=== PATIENT | female | born 1980 | race Caucasian/White ===

== ENCOUNTER → 2016-07-20 | Outpatient (CLI) | payer BC ==
--- NOTE | 2016-07-20 14:12 | US ---
Study: Thyroid Gland Ultrasound. Indication: NODULE Technique: Multiplanar grayscale sonographic images of the thyroid gland obtained. Comparison: None. Findings: Right lobe measures 5.0 x 1.7 x 1.6 cm. It demonstrates a 1.6 cm hypoechoic solid nodule posterior inferiorly. Left lobe measures 4.7 x 1.9 x 2.0 cm and demonstrates a subtle 2.0 cm solid hypoechoic nodule posterior inferiorly. Isthmus measures 0.5 cm in thickness. Impression: Two subtle solid hypoechoic nodules above which meet criteria for FNA biopsy. Electronically signed by: Johnathan Heredia MD 07/20/2016 2:11 PM [employer]ICAL WAREHOUSEMAN
== END | disposition home or self-care (01) ==
LOC: US 13:02
PROVIDERS: ATTEND Emergency Medicine
DX: E04.1 Nontoxic single thyroid nodule (principal)

== ENCOUNTER → 2016-08-24 | Outpatient (CLI) | payer BC ==
--- NOTE | 2016-08-24 15:00 | MAM ---
History: Well woman exam. Date of exam: 08/24/2016 Services provided: Bilateral full field digital screening mammography. CAD, the images were reviewed with R2 computer aided detection. FINDINGS: Glandular tissue is scattered glandular pattern with increased mammographic density. Study is compared with 2015 exam. No dominant mass, architectural distortion or clustered microcalcification. Stable parenchymal distribution. IMPRESSION: Benign exam Recommendation: Routine annual mammography BIRAD CATEGORY: 2 BENIGN Electronically signed by: Petra Celeste MD 08/24/2016 2:59 PM CDT
== END | disposition home or self-care (01) ==
LOC: MAMMO 08:19
PROVIDERS: ATTEND Emergency Medicine
DX: Z12.31 Encounter for screening mammogram for malignant neoplasm of breast (principal)

== ENCOUNTER 2016-09-22 08:56 | Emergency (ER) | payer BC ==
[2016-09-22 09:14] VITALS: TEMP 98.4
[2016-09-22] MEDS ORDERED: predniSONE 20 MG TAB PO ONE (09:16)
[2016-09-22] MEDS ORDERED: KETOROLAC TROMETHAMINE INJ 30 MG/ML VIAL IM ONE (09:16)
[2016-09-22] MEDS ORDERED: CYCLOBENZAPRINE HCL 10 MG TAB PO ONE (09:17)
[2016-09-22] MEDS ORDERED: ACETAMINOPHEN-CAFF-BUTALBITAL 1 EA TAB PO ONE (09:17)
--- NOTE | 2016-09-22 09:20 | ED.PDOC ---
History of Present Illness - General Chief Complaint: Cardiovascular Problem Stated Complaint: chest pain Time Seen by Provider: 09/22/16 09:01 Source: patient Exam Limitations: no limitations - History of Present Illness Initial Comments: the patient is a 36-year-old female presenting to the emergency room secondary to too brief stabbing episodes of chest pain to the left upper chest early in the morning today. She also has left-sided neck pain with pain shooting up the left side of her scalp behind her ear. There is pain extending down the left trapezius muscle. It does extend towards the shoulder. Pain is made worse with palpation and with movement. There is no step-off or spinous process tenderness to palpation or deformity. She does have some mild discomfort palpation over the lateral aspect of the left pectoralis muscle. She has obvious muscle spasm of the paraspinal paracervical spinal muscles on the left. The patient woke up with these symptoms. No recent neck trauma. No chest trauma. No shortness of breath or palpitations. No chest pain currently. No cardiac history. Timing/Duration: 4-6 hours Severity: moderate Improving Factors: immobilization Worsening Factors: movement Associated Symptoms: malaise Allergies/Adverse Reactions: Allergies NO KNOWN ALLERGY Allergy (Verified 09/22/16 09:14) Home Medications: Ambulatory Orders Cyclobenzaprine HCl [Flexeril] 10 mg PO Q8HR PRN #20 tab 02/25/14 Naproxen Sodium [Anaprox Ds] 550 mg PO BID #20 tab 02/25/14 Nebivolol HCl [Bystolic] 2.5 mg PO DAILY 02/25/14 Cyclobenzaprine HCl [Flexeril] 5 mg PO TID PRN #30 tab 09/22/16 Review of Systems - Review of Systems Constitutional: States: malaise Respiratory: States: no symptoms reported Cardiology: States: see HPI Gastrointestinal/Abdominal: States: no symptoms reported Genitourinary: States: no symptoms reported Musculoskeletal: States: see HPI, neck pain Skin: States: no symptoms reported Neurological: States: anxiety Endocrine: States: no symptoms reported All other Systems: No Change from Baseline Past Medical History (General) - Patient Medical History Hx Seizures: No Hx Stroke: No Hx Dementia: No Hx Asthma: No Hx of COPD: No Hx Cardiac Disorders: Yes - Palitations Hx Pacemaker: No Hx Hypertension: No Hx Thyroid Disease: Yes Hx Diabetes: No Hx Gastroesophageal Reflux: No Hx Renal Disease: No Hx of HIV: No Hx MRSA: No - Vaccination History Hx Tetanus, Diphtheria Vaccination: Yes Hx Influenza Vaccination: No Hx Pneumococcal Vaccination: No - Social History Hx Tobacco Use: No Hx Alcohol Use: No Hx Substance Use: No Hx Substance Use Treatment: No Hx Depression: Yes - Activities of Daily Living Hospice Agency (if applicable):: None - Female History Patient is a Female of Child Bearing Age (10 -59 yrs old): Yes Patient : No Family Medical History - Family History Mother Family History: Unknown Living Status: Unknown Physical Exam - Physical Exam General Appearance: Alert, Anxious, No apparent distress Eye Exam: bilateral normal Ears, Nose, Throat: hearing grossly normal, normal ENT inspection, normal pharynx Neck: other - see history of present illness. No bruising or gross deformity. Muscle spasm is present on the left posteriorly. Respiratory: chest non-tender, lungs clear, normal breath sounds, no respiratory distress, no accessory muscle use Cardiovascular/Chest: normal peripheral pulses, regular rate, rhythm, no edema Peripheral Pulses: radial,right: 2+, radial,left: 2+, dorsalis pedis,right: 2+, dorsalis pedis,left: 2+ Rectal Exam: deferred Back Exam: normal inspection, no CVA tenderness, no vertebral tenderness Extremity: normal range of motion, non-tender, normal inspection, no pedal edema , normal capillary refill Neurologic: comber setter II-XII nml as tested, alert, oriented x 3 - anxious Skin Exam: normal color - no rashes at this time Comments: Vital Signs - 24 hr 09/22/16 09:00 Temperature 98.4 F Pulse Rate [ 72 pulse ox] Respiratory 20 Rate Blood Pressure 139/90 [Left Arm] O2 Sat by Pulse 92 L Oximetry Progress - Progress Progress: 09/22/16 09:22 the patient is a 36-year-old female presenting to the emergency room secondary to left-sided neck pain that appears to be extending down to her left anterior chest wall and at the posterior aspect of the left side of her scalp. She has obvious muscle spasm present. The patient is going to be given 1 dose of oral prednisone here. She is also being given one shot of IM Toradol here. She is being given 1 dose of oral Fioricet and 1 dose of oral Flexeril. She can continue the Flexeril as an outpatient. continued steroid usage is being avoided secondary to recent ocular pathology. She is to use Aleve twice daily for the next few days to reduce inflammation. Additionally she should do stretches for her neck to prevent muscle spasms. Topical heat can be used as well. ER warnings were given for any acute worsening. The patient may benefit from the aid of a chiropractor as well. - Results/Orders Results/Orders: EKG shows normal sinus rhythm with a normal axis. Normal QT interval. Normal ND interval. Normal R-wave progression in anterior leads. No acute ST segment changes concerning for ischemia. Nonspecific T-wave changes in leads 3 and V3. Departure - Departure Clinical Impression: Cervical radiculopathy Disposition: Discharge to Home or Self Care Condition: Fair Departure Forms: ED Discharge - Pt. Copy, Patient Portal Self Enrollment Instructions: DI for Cervical Radiculopathy Diet: regular diet Activity: increase activity as tolerated Referrals: AKI BROWN [Primary Care Provider] - 1-2 Weeks Prescriptions: Cyclobenzaprine HCl [Flexeril] 5 mg PO TID PRN #30 tab PRN Reason: Muscle Spasms Home Medications: Ambulatory Orders Cyclobenzaprine HCl [Flexeril] 10 mg PO Q8HR PRN #20 tab 02/25/14 Naproxen Sodium [Anaprox Ds] 550 mg PO BID #20 tab 02/25/14 Nebivolol HCl [Bystolic] 2.5 mg PO DAILY 02/25/14 Cyclobenzaprine HCl [Flexeril] 5 mg PO TID PRN #30 tab 09/22/16 Additional Instructions: the patient is a 36-year-old female presenting to the emergency room secondary to left-sided neck pain that appears to be extending down to her left anterior chest wall and at the posterior aspect of the left side of her scalp. She has obvious muscle spasm present. The patient is going to be given 1 dose of oral prednisone here. She is also being given one shot of IM Toradol here. She is being given 1 dose of oral Fioricet and 1 dose of oral Flexeril. She can continue the Flexeril as an outpatient. continued steroid usage is being avoided secondary to recent ocular pathology. She is to use Aleve twice daily for the next few days to reduce inflammation. Additionally she should do stretches for her neck to prevent muscle spasms. Topical heat can be used as well. ER warnings were given for any acute worsening. The patient may benefit from the aid of a chiropractor as well.
[2016-09-22 10:03] VITALS: BP 117/73; O2SAT 97
== END 2016-09-22 10:03 | disposition home or self-care (01) ==
LOC: ER 08:56
DX: M54.12 Radiculopathy, cervical region (principal); R00.2 Palpitations; E07.9 Disorder of thyroid, unspecified; Z79.899 Other long term (current) drug therapy

== ENCOUNTER → 2016-09-28 | Outpatient (CLI) | payer BC ==
--- NOTE | 2016-09-29 09:06 | US ---
EXAM DESCRIPTION: Thyroid CLINICAL HISTORY: 36 years Female, RECENT THYROIDECTOMY COMPARISON: July 20, 2016 FINDINGS: Sonographic evaluation of the thyroid is compared to a prebiopsy examination performed previously. The right lobe is 4.2 x 1.7 x 1.9 cm and the left lobe is 4.3 x 2.0 x 1.8 cm. The isthmus is 5 mm in thickness. These measurements are essentially unchanged from previous biopsy images. On the right a hypoechoic nodule involving the lower pole it measures smaller than previously seen and is estimated at 1.2 x 0.8 x 0.8 cm. this does not represent the area of biopsy. On the left there is a hypoechoic nodule measuring 1.5 x 0.8 x 0.8 cm and slightly smaller than previously seen. In the adjacent area is a hypoechoic area that measures 2.4 x 0.9 x 1.1 cm which may represent the area of biopsy and represent a small area of hematoma formation. This was not evident on the previous study. IMPRESSION: 1. Small nodules in each thyroid lobe, slightly smaller than previously seen. 2. Additional small area of hypoechoic change along the posterior aspect of the lower pole likely representing the biopsy site and a small hematoma measuring 2.4 x 0.9 x 1.1 cm in size in the lower pole of the left lobe. Electronically signed by: Jaswinder Quinn MD 09/29/2016 9:06 AM CDT
== END | disposition home or self-care (01) ==
LOC: US 13:33
PROVIDERS: ATTEND Emergency Medicine
DX: E04.2 Nontoxic multinodular goiter (principal)

== ENCOUNTER → 2016-12-11 | Outpatient (CLI) | payer BC ==
--- NOTE | 2016-12-11 15:56 | MRI ---
EXAM: Brain w/oContrast CLINICAL INDICATION: 36-year-old female with headache. COMPARISON: None. TECHNIQUE: Multiplanar, multi-sequence MR imaging of the brain without contrast. FINDINGS: No abnormal signal is seen on the T2, FLAIR or diffusion weighted images. There is no evidence of intracranial hemorrhage, mass or edema. Midline structures are within normal limits. No abnormal post gadolinium enhancement. The ventricles and basal cisterns are normal in size and configuration. Major intracranial flow voids are identified. The paranasal sinuses and mastoid air cells are patent. IMPRESSION: No specific MRI findings noted to suggest etiology of the patient's symptoms. Electronically signed by: Tg Saha MD 12/11/2016 3:55 PM CDT
== END | disposition home or self-care (01) ==
LOC: MRI 12:47
PROVIDERS: ATTEND Nurse Practitioner Acute Care
DX: R51 Headache (principal)

== ENCOUNTER → 2017-06-24 | Outpatient (CLI) | payer BC ==
--- NOTE | 2017-06-25 16:57 | MRI ---
EXAM DESCRIPTION: Lumbar Spine w/o Contrast MRI. CLINICAL HISTORY: PAIN RT HIP COMPARISON: None. TECHNIQUE: Multiplanar, multiple standard sequences, non contrast MRI, lumbar spine. FINDINGS: T12-L1: Anterior Modic type I endplate reactive changes inferior T12. Anterior endplate ridging and minimal desiccation of the disc and anterior bulge. No posterior bulging.. Canal and foramina are patent. Posterior elements unremarkable. Conus terminates at L1. L1-2: Minimal endplate reactive changes anteriorly and anterior bulge. Remainder of the disc is unremarkable. Canal and foramina are patent. Posterior elements are unremarkable. Well-circumscribed bright T1 and T2 signal in the left L1 vertebral body abutting the superior endplate. No inversion recovery signal. Remaining discs, L2-3 down to L5-S1, normal signal, no bulging. Disc spaces are preserved. Canal and foramina are patent. Facets are unremarkable. Posterior elements are negative. Paravertebral soft tissues negative.. Normal marrow signal in the remaining vertebral bodies and the posterior elements. Vertebral bodies are not compressed at any level. IMPRESSION: 1. Moderate focal area of spondylosis anterior inferior T12 endplate with anterior T12-L1 disc bulge and marginal spurs. Canal foramina and posterior elements are negative. 2. Small focal area of spondylosis anterior L1-2 endplates and minimal disc bulge. Remainder of the disc. Canal and foramina at this level, and posterior elements are negative. 3. Hemangioma in the L1 vertebral body superior, abutting the endplate on the left. Electronically signed by: Kayden Gregorio MD 06/25/2017 4:55 PM ACCOUNT LIAISON
== END ==
LOC: MRI 10:50
PROVIDERS: ATTEND Nurse Practitioner Family
DX: M25.551 Pain in right hip (principal); M47.894 Other spondylosis, thoracic region; M51.25 Other intervertebral disc displacement, thoracolumbar region; D18.09 Hemangioma of other sites

== ENCOUNTER → 2017-07-20 | Outpatient (CLI) | payer BC ==
--- NOTE | 2017-07-20 13:01 | MAM ---
DIAGNOSTIC RIGHT MAMMOGRAMS HISTORY: UNSPECIFIED LUMP IN UNSPECIFIED BREAST COMPARISON: Mammograms of August 24, 2016 TECHNIQUE: Digital 2-D mammograms , and 3-D tomosynthesis,1 of both breasts were performed in CC and MLO orientations. Mammo CAD analysis also performed. Skin marker placed over area of palpable abnormality in right breast Grayscale and color Doppler sonographic evaluation also performed in area of palpable abnormality in right breast. FINDINGS: Mammograms: Heterogeneously dense fibroglandular tissue identified in both breasts. Skin marker situated near 10:00 position of right breast at mid depth, without obvious underlying abnormality. Benign microcalcifications scattered in both breasts. No obvious mass lesion or concerning microcalcifications or architectural distortion detected in either breast. Ultrasound: A 2.1 cm ovoid finding near 10:00 position (6 cm from the nipple). It exhibits well-defined margins with heterogeneously hypoechoic internal appearance, and relatively homogeneous posterior acoustic enhancement. There is no internal nor marginal vascularity associated with this finding. No concerning mass, shadowing abnormality, loculated fluid collection nor architectural distortion detected in this area. IMPRESSION: A benign fibroadenoma identified near 10:00 position of right breast, likely corresponding to the palpable abnormality. This finding is not visualized mammographically. No concerning mammographic finding in remainder of either breast. BI-RADS: 2, benign findings. Follow-up: Annual surveillance recommended Electronically signed by: Ricardo Alexander MD 07/20/2017 1:00 PM [employer]
== END ==
LOC: MAMMO 08:48
PROVIDERS: ATTEND Nurse Practitioner Family
DX: N63.0 Unspecified lump in unspecified breast (principal)
CPT/HCPCS: 76641; 77066; G0279

== ENCOUNTER → 2018-06-30 | Outpatient (CLI) | payer BC ==
--- NOTE | 2018-07-01 10:44 | US ---
EXAM DESCRIPTION: Breast,Right: Ultrasound CLINICAL HISTORY: 38 yearsFemaleLUMP palpable mass upper outer quadrant right breast posterior third. COMPARISON: Right breast diagnostic digital tomosynthesis examination and report on this visit. Right breast ultrasound 07/20/2017. TECHNIQUE: Transcutaneous scanning of the right breast utilizing grullon-scale and Doppler modes. Scanning performed by the polygraph operator and Dr. Gregorio. FINDINGS: Scanning of the upper-outer quadrant of the right breast from the nipple to 5 cm posterior to the nipple. This is in the region where skin markers were located. Mostly fibroglandular tissues with islands of fatty echotexture. At the 10:30 clock position 5 cm from the nipple, is a anechoic and hypoechoic structure measuring 7.5 x 6.1 mm, wider than tall orientation, circumscribed microlobulated margins, and internal echogenicity. Posterior acoustic enhancement. Nonvascular. At the 11:00 position 3 cm from the nipple is a hypoechoic circumscribed nodule with wider than tall orientation and predominantly posterior acoustic enhancement. Nonvascular. Measures 18 x 13 x 5 mm. At the 11:30 clock position 4 cm from the nipple is a hypoechoic nodule with circumscribed margins, wider than tall orientation, nonvascular, and posterior acoustic enhancement. Dimensions are 7.1 x 7.2 mm. These are all most likely lymph nodes. Not as well seen on the prior ultrasound study. IMPRESSION: 1. Bi-Rads Category 3: Probably Benign Findings. 2. Please refer to right breast diagnostic digital tomosynthesis examination and report on this visit. The FINDINGS and the FOLLOW-UP plan were reviewed in person with the patient after the examination. Written communication explaining the IMPRESSION and FOLLOW-UP will be mailed to the patient and referring care provider. Electronically signed by: Kayden Gregorio MD 07/01/2018 10:42 AM [employer]NAGER [employer]ION
--- NOTE | 2018-07-01 10:59 | MAM ---
EXAM DESCRIPTION: Breast,Right: Digital Mammography CLINICAL HISTORY: 38 yearsFemaleBREAST LUMP palpable lump upper outer quadrant posterior third right breast.. Palpable lump same location one year ago. COMPARISON: Targeted right breast ultrasound included with this examination. Diagnostic digital breast tomosynthesis 07/20/2017. . TECHNIQUE: Bilateral CC, LM, and MLO projection full-field images, digital mammographic tomosynthesis technique. Bilateral 2-D digital full-field MLO images. CAD not utilized. FINDINGS: The breast parenchymal density pattern is: Heterogeneously dense breast tissue, which may obscure small masses. No skin thickening or nipple retraction skin marker for palpable lump, upper outer quadrant posterior third right breast. Bilateral axillary lymph nodes. Bilateral solitary microcalcifications. Bilateral accessory axillary breast tissue again noted. No new focal, stellate mass or density, focal asymmetry , and no suspicious microcalcifications bilaterally. Ultrasound: Scanning of the upper-outer quadrant of the right breast from the nipple to 5 cm posterior to the nipple. This is in the region where skin markers were located. Mostly fibroglandular tissues with islands of fatty echotexture. At the 10:30 clock position 5 cm from the nipple, is a anechoic and hypoechoic structure measuring 7.5 x 6.1 mm, wider than tall orientation, circumscribed microlobulated margins, and internal echogenicity. Posterior acoustic enhancement. Nonvascular. At the 11:00 position 3 cm from the nipple is a hypoechoic circumscribed nodule with wider than tall orientation and predominantly posterior acoustic enhancement. Nonvascular. Measures 18 x 13 x 5 mm. At the 11:30 clock position 4 cm from the nipple is a hypoechoic nodule with circumscribed margins, wider than tall orientation, nonvascular, and posterior acoustic enhancement. Dimensions are 7.1 x 7.2 mm. These are all most likely lymph nodes. Not as well seen on the prior ultrasound study. IMPRESSION: BI-RADS CATEGORY: 3 - PROBABLY BENIGN. Management: Short interval (6-month) follow-up diagnostic digital right breast mammography and continued surveillance right breast targeted ultrasound.. The FINDINGS and the FOLLOW-UP plan were reviewed in person with the patient after the examination. Written communication explaining the IMPRESSION and FOLLOW-UP will be mailed to the patient and referring care provider. Electronically signed by: Kayden Gregorio MD 07/01/2018 10:57 AM [facility]
== END ==
LOC: US 12:56
PROVIDERS: ATTEND Nurse Practitioner Family
DX: D24.1 Benign neoplasm of right breast (principal)
CPT/HCPCS: 76641; 77066; G0279

== ENCOUNTER → 2019-05-23 | Outpatient (CLI) | payer BC ==
--- NOTE | 2019-05-24 16:48 | US ---
EXAM DESCRIPTION: Pelvic,Non-OB: Ultrasound. CLINICAL HISTORY: 39 years Female OVARIAN CYST, LEFT COMPARISON: Pelvic ultrasound August 2015. TECHNIQUE: Transcutaneous scanning through the urine filled bladder. Endovaginal scanning. Marcial-scale and Doppler modes. FINDINGS: Uterus surgically removed vaginal cuff is unremarkable. Cul-de-sac: No fluid.. Right ovary 2.6 x 3.3 x 2.3 cm. 10.2 mL. Normal color Doppler vascularity. Small follicles but no cysts. No adnexal mass or free fluid. Left ovary 3.9 x 2.6 x 3.0 cm. 21.9 mL. Normal color Doppler vascularity. Anechoic thin-walled simple cyst measuring 3.1 x 2.7 x 1.9 cm. Not vascular. No adnexal mass or free fluid. IMPRESSION: 1.3.1 cm simple left ovarian cyst. No follow-up imaging is recommended. Reference: Radiology 2010 Jan;256(3):943-54. 2. Normal right ovarian size and vascularity. Small follicles but no cysts. No fluid in the adnexa. 3. Vaginal cuff is unremarkable. No fluid in the cul-de-sac. Electronically signed by: Kayden Gregorio MD 05/24/2019 4:47 PM [employer] PRINTER
== END ==
LOC: US 15:01
PROVIDERS: ATTEND Nurse Practitioner Family
DX: N83.202 Unspecified ovarian cyst, left side (principal)